=== PATIENT | female | born 1935 | race Two or more races ===

== ENCOUNTER 2017-08-13 19:19 | Emergency (ER) | payer OTHER ==
[~2017-08-13] VITALS: Ht 170.2 cm; Wt 72.6 kg
[2017-08-13] MEDS ORDERED: TRAMADOL HCL 50 MG TABLET ONE (19:45)
[2017-08-13] MEDS ORDERED: TRAMADOL HCL 50 MG TABLET PO ONE (20:00)
--- NOTE | 2017-08-13 21:10 | NUR ---
Patient discharged to home in stable condition. Written and verbal after care instructions given. Patient verbalizes understanding of instruction.
[2017-08-13 21:12] VITALS: BP 145/85
== END 2017-08-13 21:14 | disposition home or self-care (01) ==
LOC: ER 19:22
DX: M25.462 Effusion, left knee (principal); Z96.653 Presence of artificial knee joint, bilateral
CPT/HCPCS: 73562; 99284; A4606; Z7610